=== PATIENT | female | born 1985 | race Caucasian/White ===

== ENCOUNTER 2016-12-26 17:53 | Emergency (ER) | payer MEDICAID ==
[~2016-12-26] VITALS: Ht 162.6 cm; Wt 81.7 kg
[2016-12-26 18:22] VITALS: BP 106/65
[2016-12-26] MEDS ORDERED: TDAP [DIPH/PERTUSSIS/TET] 0.5 ML VIAL IM ONE ×2 (19:00→19:22)
[2016-12-26] MEDS ORDERED: LIDOCAINE HCL/PF 1% 30 ML VIAL TP ONE (19:00)
== END 2016-12-26 19:37 | disposition home or self-care (01) ==
LOC: ER 17:55
DX: S61.011A Laceration without foreign body of right thumb without damage to nail, initial encounter (principal); W26.0XXA Contact with knife, initial encounter; Y93.89 Activity, other specified; Y92.090 Kitchen in other non-institutional residence as the place of occurrence of the external cause; Y99.8 Other external cause status
CPT/HCPCS: 12001; 90471; 90715; 99283; A4606; A6402; J3490; Z7610